=== PATIENT | male | born 1995 | race Caucasian/White ===

== ENCOUNTER → 2018-08-15 15:28 | Outpatient (CLI) | payer MEDICAID, SELFPAY ==
[2018-08-11 16:43] VITALS: BMI 21.4
[2018-08-15 17:22] LABS: Absolute Lymphocyte Count 1.78 X10^3/ul (0.83-4.51); Absolute Neutrophil Count 3.6 X10^3/uL (2.0-7.7); Basophil# 0.04 X10^3/uL; Basophil% 0.7 % (0-1); Eosinophil# 0.02 X10^3/uL; Eosinophils% 0.3 % (0-5); Hematocrit 40.3 % (40-54); Hemoglobin 14.1 g/dl (13.0-16.5); Lymphocyte # 1.78 X10^3/ul (4.0); Lymphocyte % 30.2 % (19-41); Mean Corpuscular Hgb 29.7 pg (27.0-32.0); Mean Corpuscular Volume 84.8 fL (80-94); Mean Platelet Vol. 10.7 fl (6.2-12.0); Monocyte# 0.43 X10^3/uL; Monocyte% 7.3 % (0-10); Neutrophil # 3.62 X10^3/uL (2.7-7.7); Neutrophil % 61.3 % (47-70); Platelet Count 180 K/mm3 (150-450); RBC Distribution Width CV 12.5 % (11.6-14.6); RBC Distribution Width SD 38.4 fl (35.1-43.9); Red Blood Count 4.75 M/mm3 (4.6-6.2); White Blood Count 5.9 K/mm3 (4.4-11.0)
[2018-08-15 17:30] LABS: POSITIVE COUNT NO; POSITIVE DIFFERENTIAL NO; POSITIVE MORPHOLOGY NO
[2018-08-15 17:40] LABS: ALB/GLOB Ratio 1.8 RATIO (0.9-2.4); AST(SGOT) 10 U/L (15-37); Alanine Aminotransfer ALT/SGPT 19 U/L (16-61); Albumin, Serum 4.6 g/dL (3.2-5.0); Alkaline Phosphatase 59 U/L (45-117); Anion Gap 11 (5-15); BUN 15 mg/dL (7-18); BUN/Creat Ratio 18.8 RATIO (10-20); Calcium,Total 9.1 mg/dL (8.5-10.1); Chloride 105 mmol/L (98-107); EST Glomerular Filtration Rate 131 mL/min (>60); Est Glom Filt Rate - Afr Amer 158 mL/min (>60); Globulin 2.6 g/dL (2.2-4.2); Glucose 72 mg/dL (74-106); Potassium 3.5 mmol/L (3.5-5.1); Protein, Total 7.2 g/dL (6.4-8.2); Sodium Level 144 mmol/L (136-145)
== END ==
PROVIDERS: Family Provider Internal Medicine; PCP Internal Medicine; Referring Provider Internal Medicine; Visit Provider Internal Medicine
DX: G91.9 Hydrocephalus, unspecified (principal)
CPT/HCPCS: 36415; 80053; 85025

== ENCOUNTER → 2019-01-24 | Outpatient (CLI) | payer MEDICAID, SELFPAY ==
[2019-01-23 14:04] VITALS: BMI 21.4
[2019-01-25 13:08] LABS: Amphetamine Urine VISTA POSITIVE (<1000 ng/mL); Barbiturate Urine VISTA NEGATIVE (< 200 ng/mL); Benzodiazepine Urine VISTA NEGATIVE (< 200 ng/mL); Cocaine Urine VISTA NEGATIVE (< 300 ng/mL); Ecstacy Urine VISTA NEGATIVE (< 500 ng/mL); Methadone Urine VISTA NEGATIVE (< 300 ng/mL); PCP Urine VISTA NEGATIVE (< 25 ng/mL); THC Urine VISTA POSITIVE (< 50 ng/mL); Vista UDS pH Range 6
== END | disposition home or self-care (01) ==
PROVIDERS: Family Provider Internal Medicine; PCP Internal Medicine; Visit Provider Internal Medicine
DX: F90.9 Attention-deficit hyperactivity disorder, unspecified type (principal)
CPT/HCPCS: 80307

== ENCOUNTER 2019-06-08 11:07 | Emergency (ER) | payer MEDICAID, SELFPAY ==
[2019-05-31 15:01] VITALS: BMI 21.4
[2019-06-08 11:08] VITALS: BP 126/92; PULSE 80; RESP 16; TEMP 36.9; O2SAT 99; BMI 25.8
--- NOTE | 2019-06-08 12:04 | RAD_ITS ---
STUDY: X-RAY CHEST REASON FOR EXAM: Male, 23 years old. Chest pain and tightness TECHNIQUE: PA and lateral views of the chest. COMPARISON: 2009 FINDINGS: LARD BLEACHER shunt tube free of obvious complication The lungs are clear and expanded. There is no demonstrated pleural abnormality. Normal size heart. Normal mediastinum and vicki. Normal visualized pulmonary arteries. Normal visualized aortic arch and descending thoracic aorta. Normal visualized thoracic spine. Normal visualized ribs, clavicles, and shoulders. There is no demonstrated abnormality of the visualized soft tissue structures of the upper abdomen. RAD/Chest PA and Lateral IMPRESSION: Normal x-ray examination of the chest. Electronically Signed: Mehul Castro MD at 12:20 EDT , Service support ,
[2019-06-08 12:19] LABS: Absolute Lymphocyte Count 1.73 X10^3/uL (0.83-4.51); Absolute Neutrophil Count 4.4 X10^3/uL (2.0-7.7); Basophil# 0.08 X10^3/uL; Basophil% 1.2 % (0-1); Eosinophil# 0.01 X10^3/uL; Eosinophils% 0.1 % (0-5); Hematocrit 42.1 % (40-54); Hemoglobin 14.6 g/dL (13.0-16.5); Lymphocyte # 1.73 X10^3/ul (4.0); Lymphocyte % 25.6 % (19-41); Mean Corp Hgb Conc 34.7 g/dL (32-36); Mean Corpuscular Hgb 29.6 pg (27.0-32.0); Mean Corpuscular Volume 85.4 fL (80-94); Mean Platelet Vol. 10.4 fl (6.2-12.0); Monocyte# 0.54 X10^3/uL; NRBC Flagged by Analyzer 0 % (0-5); Neutrophil # 4.38 X10^3/uL (2.7-7.7); Neutrophil % 64.7 % (47-70); Platelet Count 205 K/mm3 (150-450); RBC Distribution Width CV 11.9 % (11.6-14.6); RBC Distribution Width SD 36.5 fl (35.1-43.9); Red Blood Count 4.93 M/mm3 (4.6-6.2); White Blood Count 6.8 K/mm3 (4.4-11.0)
[2019-06-08 13:03] LABS: Anion Gap 6 (5-15); BUN 12 mg/dL (7-18); BUN/Creat Ratio 12.9 RATIO (10-20); Calcium,Total 9.1 mg/dL (8.5-10.1); Chloride 104 mmol/L (98-107); Creatinine, Serum 0.93 mg/dL (0.70-1.30); EST Glomerular Filtration Rate 108 mL/min (>60); Est Glom Filt Rate - Afr Amer 131 mL/min (>60); Estimated Creatinine Clearance 113.38 ml/min; Glucose 82 mg/dL (74-106); Potassium 3.4 mmol/L (3.5-5.1); Sodium Level 141 mmol/L (136-145)
--- NOTE | 2019-06-08 13:29 | ED.DCSUM_ITS ---
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 Patient states he started developing chest pain in the center of his chest this week. Patient states it is intermittent and sharp. He gets an episode approximately every hour. The pain will last for couple seconds at a time. Is not affected by breathing or position. He denies any new activities. Pain does not radiate. States he never had any like this before. Has not tried taking anything for the pain at home. He denies any associated nausea, vomiting, abdominal pain, fever, chills, cough or shortness of breath. Patient denies any history of hypertension, hyperlipidemia or diabetes. He denies any other c omplaints at this time. Past Medical History - Allergies and Home Meds Allergies/Adverse Reactions: Allergies No Known Allergies Allergy (Verified 06/08/19 11:08) Primary Care Physician: Pablito Arteaga MD [Primary Care Provider] - Past Medical History: - - Hydrocephalus, depression/anxiety Surgical History: - - PRODUCTION RECOVERY OPERATOR shunt Lives: With Family Smoking Status: Never smoker Review of Systems All systems negative except as indicated Cardiovascular: Reports: Chest pain Physical Exam Vital Signs/Narrative: Vital Signs Temp Pulse Resp BP Pulse Ox 06/08/19 11:08 98.4 F 80 16 126/92 H 99 Inital Vital Signs reviewed: Yes General: Well nourished, Well developed, No Acute Distress Head: Normocephalic, Atraumatic Eyes: Perrl, EOMI ENT: Moist mucous membranes, No rhinorrhea Neck: Supple, Nontender Cardiovascular: Regular rate, Regular rhythm, No murmurs Respiratory: No distress, CTA bilaterally, Chest tenderness - Mild tenderness to palpation over the xiphoid process of lower sternum Abdomen: Soft, Nontender, Nondistended, Normal bowel sounds Back: Nontender, Normal Inspection Extremities: Nontender, No edema Skin: Normal color, No rash Neurological: Alert, Oriented x3, Cranial nerves II-XII grossly intact, Normal Strength, Normal Sensation Psychological: Normal affect, Normal Mood Diagnostic/Tx/Re-eval Chest X-Ray - ED: 2 View, Read by Radiologist, No Acute Disease Clinical Impression(s) from Imaging Studies Chest X-Ray 06/08/19 12:04 IMPRESSION: Normal x-ray examination of the chest. Electronically Signed: Mehul Castro MD at 12:20 EDT , Service support , Laboratory Data 06/08/19 06/08/19 12:00 12:00 WBC 6.8 RBC 4.93 Hgb 14.6 Hct 42.1 MCV 85.4 MCH 29.6 MCHC 34.7 RDW Std Deviation 36.5 RDW Coeff of [place] 11.9 Plt Count 205 MPV 10.4 Immature Gran % (Auto) 0.400 Neut % (Auto) 64.7 Lymph % (Auto) 25.6 [place] % (Auto) 8.0 Eos % (Auto) 0.1 Baso % (Auto) 1.2 H Absolute Neuts (auto) 4.4 Absolute Lymphs (auto) 1.73 Nucleated RBC % 0 Sodium 141 Potassium 3.4 L Chloride 104 Carbon Dioxide 31.0 Anion Gap 6 BUN 12 Creatinine 0.93 Estim Creat Clear Calc 113.38 Est GFR (MDRD) Af Amer 131 Est GFR (MDRD) Non-Af 108 BUN/Creatinine Ratio 12.9 Glucose 82 Calcium 9.1 Troponin negative - Rhythm Strip Rhythm Strip: Sinus Rhythm Rate: 73 Ectopy: None - EKG Initial EKG Interpretation: Sinus Rhythm, - - Normal sinus rhythm at a rate of 73 Normal intervals Normal axis Normal ST segments - Medical Decision Making Patient evaluated for ongoing intermittent chest pain. He is low risk for ACS. EKG is normal. Do not suspect pericarditis or endocarditis. Chest x-ray does not show any acute process. Troponin, CBC and BMP are grossly normal. Patient given Tylenol and ibuprofen with improvement of his pain. Patient is safe for discharge and outpatient follow-up. Do not suspect ACS or other emergent cause of his pain today. Patient will be discharged home with a course of Motrin for his pain. Patient is counseled on signs and symptoms requiring return to the emergency room. Patient verbalizes agreement and understand this plan. Patient discharged home in stable and improved condition. ED Disposition - Plan for ED Patient: Disposition: Home or Assisted Living Diagnosis: Chest pain of unknown etiology Instructions: CHEST PAIN, Uncertain Cause Prescriptions: Ibuprofen [Motrin] 600 mg PO Q8H PRN PRN #20 tab PRN Reason: Pain Or Fever Prescription Printed Referrals: Pablito Arteaga MD [Primary Care Provider] - Additional Instructions: Follow-up with your primary care doctor for further evaluation if your chest pain does not resolve. Return to emergency room with worsening symptoms as needed.
[2019-06-08] MEDS: Ibuprofen 600 MG Tablet PO (14:09)
[2019-06-08] MEDS: Acetaminophen 325 MG Tablet 650 MG PO (14:09)
--- NOTE | 2019-06-08 14:27 | EKG12_ITS ---
Test Reason : CP Blood Pressure : / mmHG Vent. Rate : 073 BPM Atrial Rate : 073 BPM P-R Int : 126 ms QRS Dur : 122 ms QT Int : 382 ms P-R-T Axes : 067 054 043 degrees QTc Int : 420 ms Normal sinus rhythm with sinus arrhythmia Non-specific intra-ventricular conduction delay Borderline ECG Confirmed by RICHARD MOREL MD ([id number]), general expeditor KIMBER MANUEL ([id number]) on 06/12/2019 10:49:44 AM Referred By: FRIDA
[2019-06-08 15:19] VITALS: BP 133/76; PULSE 76; RESP 16; O2SAT 99
== END 2019-06-08 15:22 | disposition home or self-care (01) ==
PROVIDERS: Emergency Provider Emergency Medicine; Family Provider Internal Medicine; PCP Internal Medicine
DX: R07.9 Chest pain, unspecified (principal); F32.9 Major depressive disorder, single episode, unspecified; F41.9 Anxiety disorder, unspecified; G91.9 Hydrocephalus, unspecified; Z98.2 Presence of cerebrospinal fluid drainage device; Z79.899 Other long term (current) drug therapy
CPT/HCPCS: 71046; 80048; 84484; 85025; 93005; 99283

== ENCOUNTER → 2021-05-23 11:48 | Outpatient (CLI) | payer MEDICAID, SELFPAY ==
[2021-05-23 15:38] LABS: Absolute Lymphocyte Count 1.48 X10^3/uL (0.83-4.51); Absolute Neutrophil Count 2.8 X10^3/uL (2.0-7.7); Basophil# 0.07 X10^3/uL; Basophil% 1.4 % (0-1); Eosinophil# 0.04 X10^3/uL; Eosinophils% 0.8 % (0-5); Hemoglobin 14.7 g/dL (13.0-16.5); Lymphocyte # 1.48 X10^3/ul (0.83-4.51); Lymphocyte % 30.5 % (19-41); Mean Corp Hgb Conc 34.2 g/dL (32-36); Mean Corpuscular Hgb 30.3 pg (27.0-32.0); Mean Corpuscular Volume 88.7 fL (80-94); Mean Platelet Vol. 11.5 fl (6.2-12.0); Monocyte# 0.43 X10^3/uL; Monocyte% 8.9 % (0-10); NRBC Flagged by Analyzer 0 % (0-5); Neutrophil # 2.81 X10^3/uL (2.7-7.7); Platelet Count 207 K/mm3 (150-450); RBC Distribution Width CV 11.9 % (11.6-14.6); RBC Distribution Width SD 38.2 fl (35.1-43.9); Red Blood Count 4.85 M/mm3 (4.6-6.2); White Blood Count 4.9 K/mm3 (4.4-11.0)
[2021-05-23 15:59] LABS: ALB/GLOB Ratio 1.3 RATIO (0.9-2.4); AST(SGOT) 10 U/L (15-37); Alanine Aminotransfer ALT/SGPT 19 U/L (16-61); Albumin, Serum 4.2 g/dL (3.2-5.0); Alkaline Phosphatase 53 U/L (45-117); Anion Gap 4 (5-15); BUN 13 mg/dL (7-18); BUN/Creat Ratio 14.7 RATIO (10-20); Calcium,Total 9.6 mg/dL (8.5-10.1); Chloride 107 mmol/L (98-107); Creatinine, Serum 0.88 mg/dL (0.70-1.30); EST Glomerular Filtration Rate 113 mL/min (>60); Est Glom Filt Rate - Afr Amer 137 mL/min (>60); Globulin 3.2 g/dL (2.2-4.2); Glucose 81 mg/dL (74-106); Protein, Total 7.4 g/dL (6.4-8.2); Sodium Level 140 mmol/L (136-145); T4 Free Direct 0.98 ng/dL (0.76-1.46); Thyroid Stim Hormone (TSH) 0.97 uIU/mL (0.358-3.74)
== END ==
PROVIDERS: PCP Internal Medicine; Referring Provider Internal Medicine; Visit Provider Internal Medicine
DX: F41.9 Anxiety disorder, unspecified (principal); F32.A Depression, unspecified
CPT/HCPCS: 36415; 80053; 84439; 84443; 85025

== ENCOUNTER 2021-06-16 09:43 | Emergency (ER) | payer MEDICAID, SELFPAY ==
[2021-06-16 09:44] VITALS: BP 145/89; PULSE 78; RESP 18; TEMP 36.2; O2SAT 100; BMI 25.1
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
[2021-06-16] MEDS: 0.9% Normal Saline 1,000 ML 1000 ML IV (10:32)
[2021-06-16] MEDS: DiphenhydrAMINE 50 MG/ML Syringe 25 MG IV (10:32)
[2021-06-16] MEDS: Ketorolac 30 MG/ML Syringe IV (10:33)
[2021-06-16] MEDS: proCHLORPERazine 10 MG/2 ML Vial IV (10:34)
== END 2021-06-16 11:13 | disposition home or self-care (01) ==
PROVIDERS: Emergency Provider Emergency Medicine; PCP Internal Medicine
DX: G43.909 Migraine, unspecified, not intractable, without status migrainosus (principal); S00.81XA Abrasion of other part of head, initial encounter; Y04.0XXA Assault by unarmed brawl or fight, initial encounter; Y93.9 Activity, unspecified; Y92.59 Other trade areas as the place of occurrence of the external cause; F32.A Depression, unspecified; F41.9 Anxiety disorder, unspecified; F90.9 Attention-deficit hyperactivity disorder, unspecified type; M41.9 Scoliosis, unspecified; G91.9 Hydrocephalus, unspecified; Z98.2 Presence of cerebrospinal fluid drainage device; Z79.899 Other long term (current) drug therapy; F17.210 Nicotine dependence, cigarettes, uncomplicated
CPT/HCPCS: 96361; 96374; 96375; 99283; J7030

== ENCOUNTER 2021-09-02 07:49 | Emergency (ER) | payer MEDICAID, SELFPAY ==
[2021-09-02 07:50] VITALS: BP 150/74; PULSE 73; RESP 16; TEMP 35.7; O2SAT 99; BMI 25.8
--- NOTE | 2021-09-02 08:20 | EX.ED.VIS.HA ---
HPI History of Present Illness Chief Complaint: Headache Informant: patient Onset/Context/Timing Onset: Today Context: Gradual Current Severity: Moderate Maximum Severity: Moderate Narrative Narrative: Patient presents secondary to frontal migraine headache. Patient states that headache started shortly after he got to work. He has not taken anything for the headache. He does get migraines frequently. 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 This was last checked [address] scan and TRAFFIC SURVEY TECHNICIAN shunt series. I was able to review these test results in [facility]. [facility] PFS Medical History ADHD Anxiety and depression Chronic headaches Environmental allergies Hydrocephalus with operating shunt Irritability Scoliosis Home Medications ibuprofen 600 mg PO Q8H PRN PRN #20 tab 06/08/19 [Rx Last Taken Unknown] fluoxetine 20 mg tablet 20 mg PO BID #60 tab 05/23/21 [Rx Last Taken Unknown] Allergy/AdvReac Type Severity Reaction Status Date / Time No Known Allergies Allergy Verified 09/02/21 07:52 Family History Mother Diabetes Social History Smoking Status: Current every day smoker tobacco type: cigarettes Electronic Cigarette Use: with nicotine alcohol intake: never substance use type: does not use what type of physical activity do you participate in: none and running frequency: daily ROS ROS ED Constitutional Constitutional ED: Denies chills or fever(s) Eyes Eyes: Denies blurry vision or change in vision ENT ENT ED: Denies sore throat Cardiovascular Cardiovascular: Denies chest pain Respiratory/Chest Respiratory/Chest: Denies cough or dyspnea Gastrointestinal Gastrointestinal: Denies abdominal pain, diarrhea, nausea or vomiting Genitourinary Genitourinary ED: Denies dysuria Musculoskeletal Musculoskeletal: Denies back pain or neck pain Integumentary Denies rash Neurologic Neurologic: Reports headache(s) and other Details: Light sensitivity. ; Denies paresthesias or weakness Allergic/Immunologic Allergic/Immunologic ED: Denies urticaria EXAM Physical Exam Const Vital Signs: 09/02/21 07:50 Temperature 96.2 F L Temperature Source Temporal Pulse Rate 73 Respiratory Rate 16 Blood Pressure 150/74 H Blood Pressure Mean 99 Pulse Ox 99 Oxygen Delivery Method Room Air Positive well nourished and well developed General Appearance ED: well developed HEENT Reports normocephalic and head/scalp atraumatic Eyes PERRL and EOMs intact bilaterally Neck supple and no meningeal signs Chest Wall inspection of chest normal and palpation of chest normal Resp normal respiratory effort and clear to auscultation bilaterally Cardio regular rate and regular rhythm GI normal to inspection, nondistended, normoactive bowel sounds Palpation: soft Extremity normal to inspection Neuro oriented x3 and no sensory deficits noted Sensorium / Orientation: alert Motor Exam: strength 5/5 throughout Psych mental status grossly normal Skin no rashes or lesions noted Lesions: no lesions Rashes: no rashes MDM MDM MDM Narrative Medical decision making narrative: I did review the patient's shunt series and CT scan from 5 weeks ago. Shunt was unremarkable at that time. Patient was given Toradol, Reglan, Benadryl, IV fluids. Treatment and Re-Evaluation Comments:: On repeat evaluation patient's headache is significantly improved. He will be discharged home to continue supportive care. Discharge Plan Triage Chief Complaint: Headache ED Provider: Tamara Hancock Dx/Rx/DC Orders Clinical Impression: Migraine Instructions: ED, Migraine (Classical) Prescriptions: No Action fluoxetine 20 mg tablet 20 mg PO BID Qty: 60 RF: 1 ibuprofen 600 MG tablet 600 mg PO Q8H PRN PRN (Reason: Pain Or Fever) Qty: 20 RF: 0 Primary Care Provider: Pablito Arteaga Referrals: Pablito Arteaga MD [Primary Care Provider] - As Needed Disposition Disposition: Home, Self Care
[2021-09-02] MEDS: 0.9% Normal Saline 1,000 ML 999 ML IV (08:39)
[2021-09-02] MEDS: DiphenhydrAMINE 50 MG/ML Syringe 25 MG IV (08:41)
[2021-09-02] MEDS: Ketorolac 30 MG/ML Syringe IV (08:41)
[2021-09-02] MEDS: Metoclopramide 10 MG/2 ML Vial IV (08:44)
[2021-09-02 10:46] VITALS: BP 148/72; PULSE 70; RESP 18; O2SAT 99
== END 2021-09-02 11:03 | disposition home or self-care (01) ==
PROVIDERS: Emergency Provider Emergency Medicine; PCP Internal Medicine; Visit Provider Emergency Medicine
DX: G43.909 Migraine, unspecified, not intractable, without status migrainosus (principal); F17.210 Nicotine dependence, cigarettes, uncomplicated; Z98.2 Presence of cerebrospinal fluid drainage device
CPT/HCPCS: 96361; 96374; 96375; 99283; J7030; A4216

== ENCOUNTER 2021-12-23 08:59 | Emergency (ER) | payer MEDICAID, SELFPAY ==
[2021-12-23 09:00] VITALS: BP 154/88; PULSE 69; RESP 16; TEMP 36.6; O2SAT 99; BMI 26.9
--- NOTE | 2021-12-23 09:33 | EDS_ITS ---
HPI History of Present Illness Chief Complaint: Abd Pain Informant: patient and parent Narrative Narrative: 3-day history of waxing and waning right upper quadrant abdominal pain worse with movement. Denies trauma or any new activities. No vomiting diarrhea no worsening symptoms with meals. Normal bowel movements. No urinary symptoms. History of ADHD low hydrocephalus with a TRESTLE BUILDER shunt. Mother concerned due to the patient having shunts causing problems. He is followed by Dr. Garcia. Denies headache. No chest pains. Prior similar symptoms: No PFSH PFSH Medical History ADHD Anxiety and depression Chronic headaches Environmental allergies Head ache Hydrocephalus with operating shunt Irritability Scoliosis Seizures Home Medications ibuprofen 600 mg PO Q8H PRN PRN #20 tab 06/08/19 [Rx Last Taken Unknown] sumatriptan succinate 50 mg tablet 50 mg PO .COMPLEX #9 tab 12/04/21 [Rx Last Taken Unknown] topiramate 50 mg tablet See Rx Instructions .ROUTE .COMPLEX #60 tab 12/04/21 [Rx Last Taken Unknown] Allergy/AdvReac Type Severity Reaction Status Date / Time No Known Allergies Allergy Verified 12/23/21 09:00 Family History Mother Diabetes Hypertension Surgical History History of tonsillectomy Social History Smoking Status: Current every day smoker tobacco type: cigarettes Electronic Cigarette Use: with nicotine alcohol intake: never substance use type: does not use what type of physical activity do you participate in: none and running frequency: daily ROS ROS ED Constitutional Constitutional ED: Denies chills, fever(s) or sweats Eyes Eyes: Denies change in vision ENT ENT ED: Denies dysphagia or sore throat Cardiovascular Cardiovascular: Denies chest pain, leg edema, palpitations or racing heartbeat Respiratory/Chest Respiratory/Chest: Denies cough, dyspnea or dyspnea on exertion Gastrointestinal Gastrointestinal: Reports abdominal pain; Denies diarrhea, nausea or vomiting Genitourinary Genitourinary ED: Denies dysuria, hematuria or urinary frequency Musculoskeletal Musculoskeletal: Denies back pain, extremity pain or neck pain Integumentary Denies rash or wounds Neurologic Neurologic: Denies headache(s), paresthesias or weakness EXAM Physical Exam Const Vital Signs: 12/23/21 09:00 12/23/21 11:36 Temperature 97.8 F Temperature Source Temporal Pulse Rate 69 79 Respiratory Rate 16 14 Blood Pressure 154/88 H 146/88 H Blood Pressure Mean 110 Pulse Ox 99 98 Oxygen Delivery Method Room Air Positive well nourished and well developed General Appearance ED: well developed and NAD HEENT Reports moist mucous membranes normocephalic and atraumatic Eyes PERRL, EOMs intact bilaterally and conjunctivae normal General Eye ED: Yes normal appearance of both eyes Neck no lymphadenopathy and supple General: Negative for tenderness Chest Wall Chest: Negative for tenderness Resp normal respiratory effort and normal air movement Effort and Inspection: symmetric chest movement; Negative for respiratory distress Cardio regular rate, regular rhythm and no murmurs Peripheral Pulses: pulses 2+ throughout GI normal to inspection, nondistended, normoactive bowel sounds GI Narrative: Tender deep palpation right upper quadrant there is no guarding or rebound. Negative Spivey's or McBurney's tenderness. No hernias palpated. Palpation: Negative for guarding or rebound tenderness present Back/Spine no CVA tenderness and no thoracic nor lumbar tenderness Extremity normal to inspection General Extremety ED: Negative for edema or tenderness General Extremity: Negative for edema Neuro oriented x3 and no sensory deficits noted Sensorium / Orientation: awake and alert Skin no rashes or lesions noted and no wounds MDM MDM MDM Narrative Medical decision making narrative: Patient nonsurgical abdomen. Other concerns from the shunt therefore shuntogram was obtained this is reviewed by myself and read by radiology notes intact shunts. Abdominal labs are all normal. He was given Tylenol. On reevaluation symptom-free. Abdomen was soft and nontender on reevaluation. Discussed using Tylenol as needed. He is having normal bowel movements with no urinary symptoms. mother is more reassured. Return precautions discussed. All questions were answered. Lab Data Labs: Laboratory Results - last 24 hr 12/23/21 12/23/21 09:44 09:44 WBC 6.6 RBC 4.98 Hgb 15.1 Hct 43.0 MCV 86.3 MCH 30.3 MCHC 35.1 RDW Std Deviation 38.0 RDW Coeff of [place] 11.9 Plt Count 154 MPV 11.1 Sodium 139 Potassium 3.8 Chloride 104 Carbon Dioxide 28.0 Anion Gap 7 BUN 11 Creatinine 1.03 Estim Creat Clear Calc 106.99 Est GFR (MDRD) Af Amer 114 Est GFR (MDRD) Non-Af 94 BUN/Creatinine Ratio 10.7 Glucose 94 Calcium 9.2 Total Bilirubin 0.50 AST 9 L ALT 20 Alkaline Phosphatase 59 Total Protein 7.5 Albumin 4.3 Globulin 3.2 Albumin/Globulin Ratio 1.3 Lipase 97 Radiography Diagnostic Testing: Clinical Impression(s) from Imaging Studies Shuntogram 12/23/21 10:00 IMPRESSION: Intact right-sided ventriculoperitoneal shunt tube. Electronically Signed: Frank Rico MD at 10:20 EDT , Discharge Plan Triage Chief Complaint: Abd Pain ED Provider: Zaki Mann Dx/Rx/DC Orders Clinical Impression: Nonspecific abdominal pain, ADHD, Hydrocephalus with operating shunt Instructions: Abdominal Pain Prescriptions: No Action sumatriptan succinate 50 mg tablet 50 mg PO .COMPLEX Qty: 9 RF: 4 topiramate 50 mg tablet See Rx Instructions .ROUTE .COMPLEX Qty: 60 RF: 4 ibuprofen 600 MG tablet 600 mg PO Q8H PRN PRN (Reason: Pain Or Fever) Qty: 20 RF: 0 Primary Care Provider: Pablito Arteaga Referrals: Pablito Arteaga MD [Primary Care Provider] - 1 Week Activity Restrictions/Additional Instructions: Your shunt series is intact. Abdominal labs were normal you improved with Tylenol. Use Tylenol 1 g every 6 hours as needed. Return if any worsening symptoms. Disposition Disposition: Home, Self Care Discharge Date/Time: 12/23/21 11:39
[2021-12-23] MEDS: Acetaminophen 500 MG Tablet 1000 MG PO (09:51)
--- NOTE | 2021-12-23 10:00 | RAD_ITS ---
CLINICAL HISTORY: Male, 26 years old. Right sided ventriculoperitoneal shunt tube. TECHNIQUE: Images of the skull, chest and abdomen were obtained. A right-sided ventriculoperitoneal shunt tube is seen. The tubing is intact. The distal tip is in the pelvis. # of Images: 4 RAD/Shuntogram/Prec Placed Shunt IMPRESSION: Intact right-sided ventriculoperitoneal shunt tube. Electronically Signed: Frank Rico MD at 10:20 EDT ,
[2021-12-23 10:14] LABS: Hemoglobin 15.1 g/dL (13.0-16.5); Mean Corp Hgb Conc 35.1 g/dL (32-36); Mean Corpuscular Hgb 30.3 pg (27.0-32.0); Mean Corpuscular Volume 86.3 fL (80-94); Mean Platelet Vol. 11.1 fl (6.2-12.0); Platelet Count 154 K/mm3 (150-450); RBC Distribution Width CV 11.9 % (11.6-14.6); Red Blood Count 4.98 M/mm3 (4.6-6.2); White Blood Count 6.6 K/mm3 (4.4-11.0)
[2021-12-23 10:25] LABS: ALB/GLOB Ratio 1.3 RATIO (0.9-2.4); AST(SGOT) 9 U/L (15-37); Alanine Aminotransfer ALT/SGPT 20 U/L (16-61); Albumin, Serum 4.3 g/dL (3.2-5.0); Alkaline Phosphatase 59 U/L (45-117); Anion Gap 7 (5-15); BUN 11 mg/dL (7-18); BUN/Creat Ratio 10.7 RATIO (10-20); Calcium,Total 9.2 mg/dL (8.5-10.1); Chloride 104 mmol/L (98-107); Creatinine, Serum 1.03 mg/dL (0.70-1.30); EST Glomerular Filtration Rate 94 mL/min (>60); Est Glom Filt Rate - Afr Amer 114 mL/min (>60); Estimated Creatinine Clearance 106.99 ml/min; Globulin 3.2 g/dL (2.2-4.2); Glucose 94 mg/dL (74-106); Lipase 97 U/L (73-393); Potassium 3.8 mmol/L (3.5-5.1); Protein, Total 7.5 g/dL (6.4-8.2); Sodium Level 139 mmol/L (136-145)
[2021-12-23 11:36] VITALS: BP 146/88; PULSE 79; RESP 14; O2SAT 98
== END 2021-12-23 11:39 | disposition home or self-care (01) ==
PROVIDERS: Emergency Provider Emergency Medicine; PCP Internal Medicine; Visit Provider Emergency Medicine
DX: R10.11 Right upper quadrant pain (principal); G91.9 Hydrocephalus, unspecified; G40.909 Epilepsy, unspecified, not intractable, without status epilepticus; F17.210 Nicotine dependence, cigarettes, uncomplicated; F90.9 Attention-deficit hyperactivity disorder, unspecified type; Z98.2 Presence of cerebrospinal fluid drainage device; F41.9 Anxiety disorder, unspecified; F32.A Depression, unspecified; M41.9 Scoliosis, unspecified; Z79.899 Other long term (current) drug therapy
CPT/HCPCS: 75809; 80053; 83690; 85027; 99283

== ENCOUNTER 2022-02-02 10:35 | Emergency (ER) | payer MEDICAID, SELFPAY ==
[2022-02-02 10:36] VITALS: BP 149/90; PULSE 67; RESP 14; TEMP 36.4; O2SAT 99; BMI 25.0
--- NOTE | 2022-02-02 11:39 | EDS_ITS ---
HPI History of Present Illness Chief Complaint: Headache Narrative Narrative: 26-year-old male here with headache. History of [employer] shunt, migraine, chronic headaches. The patient states he has had 12 hours of frontal headache. States is similar to prior headaches. States is gradual in onset, not associated with syncope, seizures. Denies any numbness, weakness, loss of sensation, slurred speech, facial drooping. Patient denies any recent falls. Denies any dizziness. Old chart reviewed: Last ED visit in August 2021 for migraine Noted shuntogram for 1 month ago shows intact right-sided [employer] shunt tube no obvious kinks, tube is intact [facility] Medical History ADHD Anxiety and depression Chronic headaches Environmental allergies Head ache Hydrocephalus with operating shunt Irritability Scoliosis Seizures Home Medications ibuprofen 600 mg tablet 600 mg PO Q8H PRN PRN Pain Or Fever #20 tabs 06/08/19 [Rx Last Taken Unknown] sumatriptan succinate 50 mg tablet 50 mg PO .COMPLEX #9 tabs 12/04/21 [Rx Last Taken Unknown] topiramate 50 mg tablet See Rx Instructions .Route .COMPLEX #60 tabs 12/04/21 [Rx Last Taken Unknown] metoclopramide HCl 5 mg tablet (Reglan) 5 mg PO Q8H PRN PRN headache #21 tabs 02/02/22 [Rx Last Taken Unknown] Allergy/AdvReac Type Severity Reaction Status Date / Time No Known Allergies Allergy Verified 02/02/22 10:37 Family History Mother Diabetes Hypertension Surgical History History of tonsillectomy Social History Smoking Status: Current every day smoker tobacco type: cigarettes Electronic Cigarette Use: with nicotine alcohol intake: never substance use type: does not use what type of physical activity do you participate in: none and running frequency: daily ROS ROS ED Eyes Eyes: Denies other visual disturbances ENT ENT ED: Denies ear pain Cardiovascular Cardiovascular: Denies chest pain Respiratory/Chest Respiratory/Chest: Denies dyspnea Gastrointestinal Gastrointestinal: Denies abdominal pain Genitourinary Genitourinary ED: Denies dysuria Musculoskeletal Musculoskeletal: Denies joint pain Integumentary Denies rash Neurologic Neurologic: Reports headache(s) and other Details: Notes sensitivity to light and sound ; Denies dizziness, focal weakness, numbness, syncope or weakness Psychiatric Psychiatric: Denies homicidal ideation or suicidal ideation EXAM Physical Exam Const Vital Signs: 02/02/22 10:36 Temperature 97.5 F L Temperature Source Temporal Pulse Rate 67 Respiratory Rate 14 Blood Pressure 149/90 H Blood Pressure Mean 109 Pulse Ox 99 Oxygen Delivery Method Room Air Neuro oriented x3, CN's II-XII intact bilaterally and no sensory deficits noted Neuro Narrative: Patient was alert and oriented to person place and time. Neuro exam at baseline. Cranial nerves II through XII intact. No pain with extraocular muscle movement. Negative test of skew. Normal speech. 5 of 5 strength in upper and lower extremities. Intact sensation to light touch in upper and lower extremities. No truncal, extremity ataxia. 2+ reflexes (brachial, patella, Achilles). No meningeal signs. Negative Babinski. NIH of 0 Sensorium / Orientation: alert Motor Exam: strength 5/5 throughout MDM MDM MDM Narrative Medical decision making narrative: 26-year-old male here with headache. Patient was hemodynamically stable, afebrile, nontoxic-appearing. Exam without focal neurologic deficits low suspicion for acute intracranial normalities such as [employer] shunt malfunction, hydrocephalus, subarachnoid hemorrhage, ICH. Gave the patient headache cocktail. After medicines including Reglan, Tylenol, Toradol, Decadron patient noted complete resolution of symptoms. Repeat Chava neurologic exam was intact and no new focal deficits. I have a low suspicion for an acute intracranial process at this time patient is appropriate for discharge home Discharge Plan Triage Chief Complaint: Headache ED Provider: Song Doss Dx/Rx/DC Orders Clinical Impression: Headache Instructions: ED Headache Unspecified Prescriptions: New metoclopramide HCl [Reglan] 5 mg tablet 5 mg PO Q8H PRN PRN (Reason: headache) Qty: 21 0RF No Action sumatriptan succinate 50 mg tablet 50 mg PO .COMPLEX Qty: 9 4RF Rx Instructions: 50 mg PO every two hours as needed for headache up to two tablets per day topiramate 50 mg tablet See Rx Instructions .ROUTE .COMPLEX Qty: 60 4RF Rx Instructions: 1/2 tablet PO twice daily for 1 week then 1 tablet twice daily thereafter ibuprofen 600 MG tablet 600 mg PO Q8H PRN PRN (Reason: Pain Or Fever) Qty: 20 0RF Primary Care Provider: Pablito Arteaga Referrals: Pablito Arteaga MD [Primary Care Provider] - Disposition Disposition: Home, Self Care
[2022-02-02] MEDS: 0.9% Normal Saline 1,000 ML 999 ML IV (12:30)
[2022-02-02] MEDS: Metoclopramide 10 MG/2 ML Vial 5 MG IV (12:30)
[2022-02-02] MEDS: Ketorolac 15 MG/ML Vial IV (12:31)
[2022-02-02] MEDS: dexAMETHasone 4 MG/ML Vial IV (12:31)
[2022-02-02] MEDS: Acetaminophen 325 MG Tablet PO (12:33)
[2022-02-02 13:47] VITALS: BP 144/80; PULSE 67; RESP 14; O2SAT 100
== END 2022-02-02 13:48 | disposition home or self-care (01) ==
PROVIDERS: Emergency Provider Emergency Medicine; PCP Internal Medicine; Visit Provider Emergency Medicine
DX: R51.9 Headache, unspecified (principal); F17.210 Nicotine dependence, cigarettes, uncomplicated; Z98.2 Presence of cerebrospinal fluid drainage device
CPT/HCPCS: 96374; 96375; 99283; A4216

== ENCOUNTER → 2022-08-20 | Outpatient (CLI) | payer MEDICAID, SELFPAY ==
--- NOTE | 2022-08-20 12:50 | RAD_ITS ---
EXAM: XR THORACIC SPINE, 4 OR MORE VIEWS CLINICAL INDICATION: midline back pain TECHNIQUE: Frontal, lateral and oblique views of the thoracic spine. This report was created using [employer] report generation technology. COMPARISON: None. FINDINGS: VERTEBRAE: Unremarkable. Preserved vertebral body height. No fracture. No spondylolisthesis. Preservation of the normal thoracic kyphosis. No significant facet arthropathy. DISC SPACES: Unremarkable. Disc spaces are maintained. RAD/Thoracic Spine 3 Views IMPRESSION: No evidence of thoracic spinal fracture or spondylolisthesis. Electronically Signed: Clarence Saul MD at 17:42 EST ,
== END | disposition home or self-care (01) ==
LOC: RAD 12:47
PROVIDERS: PCP Internal Medicine; Referring Provider Physician Assistant; Visit Provider Physician Assistant
DX: M54.6 Pain in thoracic spine (principal)
CPT/HCPCS: 72072

== ENCOUNTER 2022-10-26 09:35 | Emergency (ER) | payer MEDICAID, SELFPAY ==
[2022-10-26 09:37] VITALS: BP 149/100; PULSE 78; RESP 16; TEMP 36.6; O2SAT 100; BMI 26.7
--- NOTE | 2022-10-26 10:29 | EDS_ITS ---
HPI HPI - GI History of Present Illness Chief Complaint: Abd Pain Informant: patient Abdominal Pain/Flank Pain Onset: Weeks (1) Context: Gradual Onset Timing: Intermittent and Lasts (Several hours) Quality: Aching Location: Diffuse Worsened by: Movement Relieved by: Remaining Still Nausea/Vomiting/Emesis GI Symptom: Negative for Nausea or Vomiting Diarrhea/Melena/Hematochezia GI Symptom: Positive for Diarrhea Onset: Yesterday Stool Quality: Positive for Watery Episodes: 1 Associated Symptoms Associated Symptoms: Negative for Dysuria, Frequency or Hematuria Narrative Narrative: Patient presents with abdominal pain that has been constant for the past week. Patient states it comes and goes and last for several hours. Patient states it is diffuse across his abdomen. Patient states it is worse with certain movements. Patient states it is better whenever he is able to remain still. Patient denies any nausea or vomiting. Patient denies any anorexia or decrease in his appetite. Patient does admit to some diarrhea. Patient states it was only 1 episode. Patient states it was watery. Patient denies any dysuria, frequency, or hematuria. Patient denies any fevers or chills. Patient states he does have pain that radiates into his shoulders. [facility] Medical History ADHD Anxiety and depression Chronic headaches Environmental allergies Head ache Hydrocephalus with operating shunt Irritability Scoliosis Seizures Home Medications ibuprofen 600 mg tablet 600 mg PO Q8H PRN PRN Pain Or Fever #20 tabs 06/08/19 [Rx Last Taken Unknown] sumatriptan succinate 50 mg tablet 50 mg PO .COMPLEX #9 tabs 12/04/21 [Rx Last Taken Unknown] Allergy/AdvReac Type Severity Reaction Status Date / Time No Known Allergies Allergy Verified 10/26/22 09:39 Family History Mother Diabetes Hypertension Surgical History History of tonsillectomy Social History Smoking Status: Current every day smoker tobacco type: cigarettes Electronic Cigarette Use: with nicotine alcohol intake: never substance use type: does not use what type of physical activity do you participate in: none and running frequency: daily ROS ROS ED Constitutional Constitutional ED: Denies chills or fever(s) Eyes Eyes: Denies blurry vision or change in vision ENT ENT ED: Denies rhinorrhea or sore throat Cardiovascular Cardiovascular: Denies chest pain or palpitations Respiratory/Chest Respiratory/Chest: Denies cough or dyspnea Gastrointestinal Gastrointestinal: Reports abdominal pain and diarrhea; Denies nausea or vomiting Genitourinary Genitourinary ED: Denies dysuria or hematuria Musculoskeletal Musculoskeletal: Reports back pain; Denies neck pain Integumentary Denies abscess or rash Neurologic Neurologic: Denies headache(s) or weakness Allergic/Immunologic Allergic/Immunologic ED: Denies mouth swelling or urticaria EXAM Physical Exam Const Vital Signs: 10/26/22 09:37 Temperature 97.9 F Temperature Source Temporal Pulse Rate 78 Respiratory Rate 16 Blood Pressure 149/100 H Blood Pressure Mean 116 Pulse Ox 100 Oxygen Delivery Method Room Air Positive well nourished and well developed General Appearance ED: well developed HEENT Reports moist mucous membranes Neck supple and no JVD Resp normal respiratory effort and clear to auscultation bilaterally Cardio regular rate, regular rhythm and no murmurs GI normal to inspection, nondistended, normoactive bowel sounds Palpation: soft and tender RLQ; Negative for guarding or rebound tenderness present Extremity normal to inspection General Extremety ED: Negative for edema or tenderness General Extremity: Negative for edema Neuro oriented x3, CN's II-XII intact bilaterally and no sensory deficits noted Sensorium / Orientation: alert Motor Exam: strength 5/5 throughout Psych mental status grossly normal Skin no rashes or lesions noted MDM MDM MDM Narrative Medical decision making narrative: Differential diagnosis includes appendicitis, gastroenteritis, ureteral calculus, pyelonephritis, urinary tract infection, pancreatitis, bowel obstruction, bowel perforation, and mesenteric adenitis. CBC will be obtained to assess for leukocytosis and anemia. Comprehensive metabolic profile will be obtained to assess for electrolyte abnormality, renal function, and hepatic function. Lipase will be obtained to assess for pancreatitis. Urinalysis will be obtained to assess for urinary tract infection and hematuria. CT scan of the abdomen pelvis will be obtained to assess for appendicitis, enteritis, bowel perforation, and bowel obstruction. Lab Data Attestation: I reviewed the patient's lab results. Lab results narrative: CBC was reviewed and was within normal limits. Comprehensive metabolic profile was reviewed and was within normal limits. Lipase was reviewed and was normal. Urinalysis was reviewed. There is no evidence of urinary tract infection or hematuria. Labs: Laboratory Results - last 24 hr 10/26/22 10/26/22 10/26/22 10:00 10:04 10:04 WBC 7.0 RBC 5.22 Hgb 15.7 Hct 45.2 MCV 86.6 MCH 30.1 MCHC 34.7 RDW Std Deviation 38.3 RDW Coeff of [place] 12.0 Plt Count 215 MPV 10.9 Immature Gran % (Auto) 0.300 Neut % (Auto) 67.4 Lymph % (Auto) 23.2 White % (Auto) 7.8 Eos % (Auto) 0.3 Baso % (Auto) 1.0 Absolute Neuts (auto) 4.7 Absolute Lymphs (auto) 1.63 Nucleated RBC % 0 Sodium 141 Potassium 3.9 Chloride 106 Carbon Dioxide 27.0 Anion Gap 8 BUN 16 Creatinine 0.95 Estim Creat Clear Calc 108.20 Est GFR (MDRD) Af Amer 124 Est GFR (MDRD) Non-Af 103 BUN/Creatinine Ratio 16.8 Glucose 99 Calcium 9.6 Total Bilirubin 0.50 AST 11 L ALT 20 Alkaline Phosphatase 53 Total Protein 7.3 Albumin 4.4 Globulin 2.9 Albumin/Globulin Ratio 1.5 Lipase 132 Urine Color Yellow Urine Clarity Clear Urine pH 8.0 Ur Specific [place] 1.015 Urine Protein Negative Urine Glucose (UA) Normal Urine Ketones Negative Urine Occult Blood Negative Urine Nitrite Negative Urine Bilirubin Negative Urine Urobilinogen Normal Ur Leukocyte Esterase Negative Urine RBC 0 SEEN Urine WBC 0 SEEN Ur Squamous Epith Cells 0 SEEN Urine Bacteria 0 SEEN Urine Mucus 0 SEEN Radiography Diagnostic Testing: Clinical Impression(s) from Imaging Studies Abdomen/Pelvis CT 10/26/22 10:34 IMPRESSION: No suspicious solid organ abnormality No free intraperitoneal fluid, air, or suspicious adenopathy, normal appendix visualized RN FAMILY shunt tube noted with no sonographic evidence of complication Electronically Signed: Mehul Castro MD at 12:41 EDT , CT scan of the abdomen pelvis was obtained. There is no free fluid or free air. The appendix is visualized and was normal. There is a RN FAMILY shunt tube is noted in the lower abdomen. There is no evidence of any complication. This was interpreted by the radiologist and was also independently reviewed by myself. Treatment and Re-Evaluation :: Patient was given IV fluids, morphine, and Zofran initially. Patient is feeling better on reevaluation. Patient was advised of his findings. Patient was instructed to follow-up with his primary care physician in 5 to 7 days. Patient was instructed to start with liquids and advance his diet as tolerated. Patient was instructed return if worse in any way. Patient understood and was agreeable with the plan. All questions were answered. Discharge Plan Triage Chief Complaint: Abd Pain ED Provider: Marlon Alcantara Dx/Rx/DC Orders Clinical Impression: Abdominal pain in male, Hydrocephalus with operating shunt Instructions: ED Abdominal Pain Unkn Cause Male... Prescriptions: No Action sumatriptan succinate 50 mg tablet 50 mg PO .COMPLEX Qty: 9 4RF Rx Instructions: 50 mg PO every two hours as needed for headache up to two tablets per day ibuprofen 600 MG tablet 600 mg PO Q8H PRN PRN (Reason: Pain Or Fever) Qty: 20 0RF Primary Care Provider: Pablito Arteaga Referrals: Pablito Arteaga MD [Primary Care Provider] - 5-7 Days Disposition Disposition: Home, Self Care
--- NOTE | 2022-10-26 10:34 | CT_ITS ---
STUDY: CT ABDOMEN AND PELVIS WITH CONTRAST REASON FOR EXAM: Male, 26 years old. Abdominal pain -- IV PO Contrast RADIATION DOSAGE (If Supplied By Facility): CTDIvol = ( 11.19 ) mGy, DLP = ( 454.81 ) mGycm TECHNIQUE: Transaxial images were obtained from the dome of the diaphragm to the symphysis pubis with oral contrast. Oral and amp;amp; IV Gastrografin and amp;amp; 100mL Isovue-300 was administered. Sagittal and coronal images were reconstructed. Individualized dose optimization techniques were used for this CT. COMPARISON: None. FINDINGS: AP shunt tube noted, no suspicious fluid collection near the tip of the shunt within the pelvis. The visualized lung bases are unremarkable. The visualized portions of the heart are within normal limits. Normal liver. Normal gallbladder and extrahepatic biliary system. Normal spleen. Normal pancreas. Normal bilateral adrenal glands. Normal right kidney. Normal left kidney. Normal visualized stomach. Normal small intestine. Normal colon. The appendix is visualized and appears normal. Appendix seen on coronal recon images 44-47 Normal abdominal aorta. Normal inferior vena cava. Normal retroperitoneum. Normal urinary bladder. Normal abdominal wall. Normal osseous structures. CT/Abdomen/Pelvis WITH Contrast IMPRESSION: No suspicious solid organ abnormality No free intraperitoneal fluid, air, or suspicious adenopathy, normal appendix visualized [employer] shunt tube noted with no sonographic evidence of complication Electronically Signed: Mehul Castro MD at 12:41 EDT ,
[2022-10-26] MEDS: 0.9% Normal Saline 1,000 ML 1000 ML IV (10:44)
[2022-10-26] MEDS: Ondansetron 4 MG/2 ML Vial IV (10:45)
[2022-10-26] MEDS: Morphine 4 MG/ML Syringe IV (10:45)
[2022-10-26 10:46] LABS: Bacteria 0 SEEN /hpf (None Seen); Mucous, Urine 0 SEEN /hpf (<or=2+); Red Blood Cells-Urine 0 SEEN /hpf (0-5); Squamous Epithelial Cells - UA 0 SEEN /hpf (0-5); White Blood Cells 0 SEEN /hpf (0-5)
[2022-10-26 10:47] LABS: Absolute Lymphocyte Count 1.63 X10^3/uL (0.83-4.51); Absolute Neutrophil Count 4.7 X10^3/uL (2.0-7.7); Basophil# 0.07 X10^3/uL; Eosinophil# 0.02 X10^3/uL; Eosinophils% 0.3 % (0-5); Hematocrit 45.2 % (40-54); Hemoglobin 15.7 g/dL (13.0-16.5); Lymphocyte # 1.63 X10^3/ul (0.83-4.51); Lymphocyte % 23.2 % (19-41); Mean Corp Hgb Conc 34.7 g/dL (32-36); Mean Corpuscular Hgb 30.1 pg (27.0-32.0); Mean Corpuscular Volume 86.6 fL (80-94); Mean Platelet Vol. 10.9 fl (6.2-12.0); Monocyte# 0.55 X10^3/uL; Monocyte% 7.8 % (0-10); NRBC Flagged by Analyzer 0 % (0-5); Neutrophil # 4.74 X10^3/uL (2.7-7.7); Neutrophil % 67.4 % (47-70); Platelet Count 215 K/mm3 (150-450); RBC Distribution Width SD 38.3 fl (35.1-43.9); Red Blood Count 5.22 M/mm3 (4.6-6.2)
[2022-10-26 10:47] LABS: Color, Urine Yellow (Yellow); Glucose, Dipstick Normal (Normal); Ketone-Dipstick Negative (Negative); Leukocyte Esterase-Dipstick Negative /ul (Negative); Nitrite-Dipstick Negative (Negative); Occult Blood-Urine Negative /ul (Negative); Protein-Dipstick Negative (Negative); Specific Gravity, Urine 1.015 (1.002-1.030); Urine Bilirubin Dipstick Negative (Negative); Urine Clarity Clear (Clear); Urine Urobilinogen Normal (Normal)
[2022-10-26 11:05] LABS: ALB/GLOB Ratio 1.5 RATIO (0.9-2.4); AST(SGOT) 11 U/L (15-37); Alanine Aminotransfer ALT/SGPT 20 U/L (16-61); Albumin, Serum 4.4 g/dL (3.2-5.0); Alkaline Phosphatase 53 U/L (45-117); Anion Gap 8 (5-15); BUN 16 mg/dL (7-18); BUN/Creat Ratio 16.8 RATIO (10-20); Calcium,Total 9.6 mg/dL (8.5-10.1); Chloride 106 mmol/L (98-107); Creatinine, Serum 0.95 mg/dL (0.70-1.30); EST Glomerular Filtration Rate 103 mL/min (>60); Est Glom Filt Rate - Afr Amer 124 mL/min (>60); Globulin 2.9 g/dL (2.2-4.2); Glucose 99 mg/dL (74-106); Lipase 132 U/L (73-393); Potassium 3.9 mmol/L (3.5-5.1); Protein, Total 7.3 g/dL (6.4-8.2); Sodium Level 141 mmol/L (136-145)
[2022-10-26 13:55] VITALS: BP 147/88; PULSE 74; RESP 16; O2SAT 99
== END 2022-10-26 13:57 | disposition home or self-care (01) ==
PROVIDERS: Emergency Provider Emergency Medicine; PCP Internal Medicine; Visit Provider Emergency Medicine
DX: R10.9 Unspecified abdominal pain (principal); G91.9 Hydrocephalus, unspecified; R19.7 Diarrhea, unspecified; R11.2 Nausea with vomiting, unspecified; F17.210 Nicotine dependence, cigarettes, uncomplicated; Z98.2 Presence of cerebrospinal fluid drainage device
CPT/HCPCS: 74177; 80053; 81001; 83690; 85025; 96361; 96374; 96375; 99284; J7030; Q9967; A4216; J2405

== ENCOUNTER 2023-04-21 15:26 | Emergency (ER) | payer MEDICAID, SELFPAY ==
[2023-04-21 15:27] VITALS: BP 126/86; PULSE 97; RESP 16; TEMP 37; O2SAT 96; BMI 26.2
--- NOTE | 2023-04-21 16:19 | EX.ED.DYSGE1 ---
HPI History of Present Illness Chief Complaint: Seizure Informant: patient Onset/Context/Timing Onset: Today Context: Sudden Onset Timing: Intermittent and Lasts (Approximately 10 minutes) Quality: Shaking Location: Generalized Worsened by: Nothing Relieved by: Nothing Narrative Narrative: Patient presents with a seizure that occurred today. Patient states it came on rather suddenly. Significant other witnessed the seizure and states he was having generalized shaking. Patient then passed out and fell to the floor. Significant other states that this lasted approximately 10 minutes. She stated that he turned purple. She states that this improved when the seizure stopped. Patient states he did bite his tongue. Patient denies any loss of control of his bowels or bladder. Patient states he did have an episode of nausea and vomiting prior to the seizure. Patient does admit to a mild headache. [facility] Medical History (Updated 04/21/23 @ 19:[address] Marlon Alcantara DO) ADHD Anxiety and depression Chronic headaches Environmental allergies Head ache Hydrocephalus with operating shunt Irritability Scoliosis Seizures Home Medications ibuprofen 600 mg tablet 600 mg PO Q8H PRN PRN Pain Or Fever #20 tabs 06/08/19 [Rx Last Taken Unknown] sumatriptan succinate 50 mg tablet 50 mg PO .COMPLEX #9 tabs 12/04/21 [Rx Last Taken Unknown] Allergy/AdvReac Type Severity Reaction Status Date / Time No Known Allergies Allergy Verified 10/26/22 09:39 Family History Mother Diabetes Hypertension Surgical History (Updated 04/21/23 @ 16:[address] Marlon Alcantara DO) History of tonsillectomy Status post ventriculo-peritoneal shunt placement Social History Smoking Status: Current every day smoker tobacco type: cigarettes Electronic Cigarette Use: with nicotine alcohol intake: never substance use type: does not use what type of physical activity do you participate in: none and running frequency: daily ROS ROS ED Constitutional Constitutional ED: Denies chills or fever(s) Eyes Eyes: Denies blurry vision or change in vision ENT ENT ED: Denies rhinorrhea or sore throat Cardiovascular Cardiovascular: Denies chest pain or palpitations Respiratory/Chest Respiratory/Chest: Denies cough or dyspnea Gastrointestinal Gastrointestinal: Reports nausea and vomiting Genitourinary Genitourinary ED: Denies dysuria or hematuria Musculoskeletal Musculoskeletal: Denies back pain or neck pain Integumentary Reports Abrasions; Denies abscess or rash Neurologic Neurologic: Reports headache(s); Denies weakness Allergic/Immunologic Allergic/Immunologic ED: Denies mouth swelling or urticaria EXAM Physical Exam Const Vital Signs: 04/21/23 15:27 04/21/23 16:54 Temperature 98.6 F Temperature Source Oral Pulse Rate 97 75 Respiratory Rate 16 16 Blood Pressure 126/86 H 127/73 H Blood Pressure Mean 99 91 Pulse Ox 96 100 Oxygen Delivery Method Room Air Room Air Positive well nourished and well developed General Appearance ED: well developed HEENT Reports moist mucous membranes Neck supple and no JVD Resp normal respiratory effort and clear to auscultation bilaterally Cardio regular rate, regular rhythm and no murmurs GI normal to inspection, nondistended, normoactive bowel sounds and non-tender Palpation: soft Extremity normal to inspection General Extremety ED: Negative for edema or tenderness General Extremity: Negative for edema Neuro oriented x3, CN's II-XII intact bilaterally and no sensory deficits noted Sensorium / Orientation: alert Motor Exam: strength 5/5 throughout Psych mental status grossly normal Skin no rashes or lesions noted Skin Narrative: There is an abrasion over the right forehead and dorsal aspect of the left hand. There is no active bleeding. There is no surrounding erythema. There is no bony tenderness or crepitance or step-off. MDM MDM MDM Narrative Medical decision making narrative: Differential diagnosis includes seizure, hydrocephalus, electrolyte abnormality, infection, and dehydration. CT scan of the brain will be obtained to assess for hydrocephalus and intracranial bleeding. CBC will be obtained to assess for leukocytosis and anemia. Basic metabolic profile will be obtained to assess for electrolyte abnormality and renal function. Lab Data Labs: Laboratory Results - last 24 hr 04/21/23 16:36 WBC 14.3 H RBC 4.78 Hgb 14.6 Hct 41.6 MCV 87.0 MCH 30.5 MCHC 35.1 RDW Std Deviation 37.7 RDW Coeff of [place] 11.7 Plt Count 199 MPV 11.2 Immature Gran % (Auto) 0.700 Neut % (Auto) 85.0 H Lymph % (Auto) 8.3 L [place] % (Auto) 5.1 Eos % (Auto) 0.3 Baso % (Auto) 0.6 Absolute Neuts (auto) 12.1 H Absolute Lymphs (auto) 1.18 Nucleated RBC % 0 Sodium 142 Potassium 4.0 Chloride 108 H Carbon Dioxide 29.0 Anion Gap 5 BUN 10 Creatinine 1.05 Estim Creat Clear Calc 104.05 Est GFR (MDRD) Af Amer 110 Est GFR (MDRD) Non-Af 91 BUN/Creatinine Ratio 9.5 L Glucose 85 Calcium 8.9 Radiography Diagnostic Testing: Clinical Impression(s) from Imaging Studies Brain CT 04/21/23 16:26 IMPRESSION: Findings which may be consistent with normal pressure hydrocephalus possibly due to ventriculoperitoneal shunt malfunction. Clinical correlation recommended Electronically Signed: Jong Laureano MD at 17:04 EDT , CT scan of the brain was obtained. There is findings which may be consistent with normal pressure hydrocephalus. This appears to be similar in appearance to CT scan from 11/07/2009. This was interpreted by the radiologist and also independently reviewed by myself. Treatment and Re-Evaluation :: On reevaluation, patient is feeling better. Patient has had no further seizure activity here in the emergency department. Patient denies any headaches. I palpated the patient's shunt valve. This appeared to be functioning properly. I also reviewed prior CT report from [facility] dated 07/16/[facility]21. There was report of stable ventriculomegaly on that report as well. I feel that the patient is safe to be discharged home. Patient was instructed return if any worsening headaches or further seizures. Patient was instructed to return if worse in any way. Patient was instructed to follow-up with his neurologist or neurosurgeon in 5 to 7 days. Patient was also instructed to follow-up with his primary care physician in 5 to 7 days. Patient and family understood and were agreeable with the plan. All questions were answered. Discharge Plan Triage Chief Complaint: Seizure ED Provider: Marlon Alcantara Dx/Rx/DC Orders Clinical Impression: Hydrocephalus with operating shunt, Seizure Instructions: ED Seizure, Recurrent (Adult) Prescriptions: No Action sumatriptan succinate 50 mg tablet 50 mg PO .COMPLEX Qty: 9 4RF Rx Instructions: 50 mg PO every two hours as needed for headache up to two tablets per day ibuprofen 600 MG tablet 600 mg PO Q8H PRN PRN (Reason: Pain Or Fever) Qty: 20 0RF Primary Care Provider: Pablito Arteaga Referrals: Pablito Arteaga MD [Primary Care Provider] - 5-7 Days David Garcia MD [Non-Staff -Ordering Privileges] - 5-7 Days Disposition Disposition: Home, Self Care
--- NOTE | 2023-04-21 16:26 | CT_ITS ---
STUDY: CT BRAIN WITHOUT CONTRAST REASON FOR EXAM: Male, 27 years old. Seizure RADIATION DOSAGE (If Supplied By Facility): CTDIvol = ( 44.99 ) mGy, DLP = ( 829.85 ) mGycm TECHNIQUE: Transaxial CT imaging of the brain was performed without administration of intravenous contrast material. Individualized dose optimization techniques were used for this CT. COMPARISON: No relevant priors. FINDINGS: Normal soft tissue structures. [place] hole noted in the right parietal lobe through which a ventricular shunt is projecting with the tip in the left lateral ventricle. There is marked diffuse ventriculomegaly possibly on the basis of communicating hydrocephalus raising question of shunt malfunction Normal white matter tracts of the cerebral hemispheres. Normal basal ganglia and thalami. Normal brainstem. Normal cerebellum. There is no intracranial hemorrhage. There are no findings of an acute ischemic infarction. Normal visualized paranasal sinuses. CT/Brain/Head without Contrast IMPRESSION: Findings which may be consistent with normal pressure hydrocephalus possibly due to ventriculoperitoneal shunt malfunction. Clinical correlation recommended Electronically Signed: Jong Laureano MD at 17:04 EDT ,
[2023-04-21] MEDS: 0.9% Normal Saline 1,000 ML 1000 ML IV (16:32)
[2023-04-21 16:41] LABS: Absolute Lymphocyte Count 1.18 X10^3/uL (0.83-4.51); Absolute Neutrophil Count 12.1 X10^3/uL (2.0-7.7); Basophil# 0.08 X10^3/uL; Basophil% 0.6 % (0-1); Eosinophil# 0.04 X10^3/uL; Eosinophils% 0.3 % (0-5); Hematocrit 41.6 % (40-54); Hemoglobin 14.6 g/dL (13.0-16.5); Lymphocyte # 1.18 X10^3/ul (0.83-4.51); Lymphocyte % 8.3 % (19-41); Mean Corp Hgb Conc 35.1 g/dL (32-36); Mean Corpuscular Hgb 30.5 pg (27.0-32.0); Mean Platelet Vol. 11.2 fl (6.2-12.0); Monocyte# 0.73 X10^3/uL; Monocyte% 5.1 % (0-10); NRBC Flagged by Analyzer 0 % (0-5); Neutrophil # 12.14 X10^3/uL (2.7-7.7); Platelet Count 199 K/mm3 (150-450); RBC Distribution Width CV 11.7 % (11.6-14.6); RBC Distribution Width SD 37.7 fl (35.1-43.9); Red Blood Count 4.78 M/mm3 (4.6-6.2); White Blood Count 14.3 K/mm3 (4.4-11.0)
[2023-04-21 16:54] VITALS: BP 127/73; PULSE 75; RESP 16; O2SAT 100
[2023-04-21 16:57] LABS: Anion Gap 5 (5-15); BUN 10 mg/dL (7-18); BUN/Creat Ratio 9.5 RATIO (10-20); Calcium,Total 8.9 mg/dL (8.5-10.1); Chloride 108 mmol/L (98-107); Creatinine, Serum 1.05 mg/dL (0.70-1.30); EST Glomerular Filtration Rate 91 mL/min (>60); Est Glom Filt Rate - Afr Amer 110 mL/min (>60); Estimated Creatinine Clearance 104.05 ml/min; Glucose 85 mg/dL (74-106); Sodium Level 142 mmol/L (136-145)
[2023-04-21] MEDS: Ondansetron 4 MG/2 ML Vial IV (17:19)
[2023-04-21 19:27] VITALS: BP 103/74; PULSE 81; RESP 16; O2SAT 98
== END 2023-04-21 19:43 | disposition home or self-care (01) ==
PROVIDERS: Emergency Provider Emergency Medicine; PCP Internal Medicine; Visit Provider Emergency Medicine
DX: R56.9 Unspecified convulsions (principal); G91.9 Hydrocephalus, unspecified; F17.210 Nicotine dependence, cigarettes, uncomplicated; R51.9 Headache, unspecified; Z98.2 Presence of cerebrospinal fluid drainage device; F17.290 Nicotine dependence, other tobacco product, uncomplicated
CPT/HCPCS: 70450; 80048; 85025; 96361; 96374; 99285; J7030; A4216; J2405

== ENCOUNTER 2023-05-06 09:52 | Emergency (ER) | payer MEDICAID, SELFPAY ==
[2023-05-06 09:53] VITALS: BP 140/84; PULSE 65; RESP 16; TEMP 36.1; O2SAT 100; BMI 25.3
--- NOTE | 2023-05-06 10:02 | EDS_ITS ---
HPI History of Present Illness Chief Complaint: Complaint [facility] Medical History ADHD Anxiety and depression Chronic headaches Environmental allergies Head ache Hydrocephalus with operating shunt Irritability Scoliosis Seizures Home Medications divalproex 500 mg tablet,delayed release 500 mg PO .COMPLEX #60 tabs 05/05/23 [Rx Last Taken Unknown] rizatriptan 10 mg tablet 10 mg PO .COMPLEX migraine headache #9 tabs 05/05/23 [Rx Last Taken Unknown] Allergy/AdvReac Type Severity Reaction Status Date / Time No Known Allergies Allergy Verified 05/06/23 09:53 Family History Mother Diabetes Hypertension Surgical History History of tonsillectomy Status post ventriculo-peritoneal shunt placement Social History Smoking Status: Current every day smoker tobacco type: cigarettes Electronic Cigarette Use: with nicotine alcohol intake: never substance use type: does not use what type of physical activity do you participate in: none and running frequency: daily EXAM Physical Exam Const Vital Signs: 05/06/23 09:53 Temperature 97.0 F L Temperature Source Temporal Pulse Rate 65 Respiratory Rate 16 Blood Pressure 140/84 H Blood Pressure Mean 102 Pulse Ox 100 Oxygen Delivery Method Room Air MDM MDM MDM Narrative Medical decision making narrative: HISTORY OF PRESENT ILLNESS: 27-year-old male here with difficulty urinating, notes pain with urination. This started yesterday. He is sexually active 1 partner. Denies concern for STDs. Notes lower abdominal pain yesterday since resolved after taking Motrin. Denies history abdominal surgeries. Denies nausea or vomiting. Denies any chest pain. REVIEW OF SYSTEMS: Pertinent positives: Difficulty urinating, abdominal pain Pertinent negatives: Nausea vomiting PHYSICAL EXAM: Nursing triage notes reviewed, Vital signs reviewed Constitutional: please see mdm HENT: MMM Eyes: Pupils equal round and reactive to light, Extraocular muscles intact Neck: No stridor, no JVD, full neck ROM Lungs: Clear to auscultation, No wheezing or rales. No increased work of breathing, no conversational dyspnea, no accessory muscle use, no nasal flaring. No respiratory distress noted Heart: Regular rate and rhythm, No murmurs, No rubs and No gallops, 2+ distal pulses (radial, femoral, posterior tibial) in all extremities Abdomen: Soft, there is no tenderness, rigidity, rebound or guarding, no obvious peritoneal signs, no palpable pulsatile abdominal masses, no auscultated abdominal bruit : No CVAT, normal-appearing genitalia, no testicular tenderness on exam Extremities: No edema Neuro: No focal neurological deficits, cranial nerves II through XII intact, 5/5 strength in all extremities. Intact sensation to light touch in all extremities, 2+ reflexes bilateral patella tendons. Normal gait. No ataxia. 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 Urinalysis shows no evidence of urinary inflammation suggestive of UTI MDM Narrative: Patient was hemodynamically stable, afebrile, nontoxic-appearing abdominal exam is benign. There is no apparent tenderness. No suprapubic tenderness or fullness. I considered the following differential diagnosis: UTI, STD Given benign nature abdominal exam I considered but thought an acute surgical pathology of the abdomen is less likely. No indication for imaging at this time. Given report of urinary tension did obtain a bladder scan as well as obtained a urinalysis. Bladder scan was not consistent wit urinary retention urinalysis without evidence of inflammation or infection. Sent urine for gonorrhea chlamydia testing given sexual activity, young age and high risk demographic. Patient has a low suspicion for STDs so will not empirically treat. The patient and/or family, caregivers express understanding. The patient and/or family, caregivers agrees with the plan. Shared decision making: I will have a discussion with the patient and or visitors regarding risk/benefits of further testing or admission. They will be made aware of of the risk/benefits inherent in this decision they will be given the opportunity to voice understanding. Total critical care time today provided was at least 0 minutes. This excludes separately billable procedures. Critical care time (if documented) is secondary to the patient having high probability of clinically significant/life threatening deterioration in the patient's condition which required my urgent intervention. Impression: 1. dysuria Dispo: esther Lab Data Attestation: I reviewed the patient's lab results. Labs: Laboratory Results - last 24 hr 05/06/23 10:35 Urine Color Yellow Urine Clarity Clear Urine pH 7.0 Ur Specific [place] 1.010 Urine Protein Negative Urine Glucose (UA) Normal Urine Ketones Negative Urine Occult Blood Negative Urine Nitrite Negative Urine Bilirubin Negative Urine Urobilinogen Normal Ur Leukocyte Esterase Negative Urine RBC 0 SEEN Urine WBC 0 SEEN Ur Squamous Epith Cells 0 SEEN Urine Bacteria 0 SEEN Urine Mucus 0 SEEN Discharge Plan Triage Chief Complaint: Complaint ED Provider: Song Doss Dx/Rx/DC Orders Instructions: Dysuria Prescriptions: No Action divalproex 500 mg tablet,delayed release (DR/EC) 500 mg PO .COMPLEX Qty: 60 5RF Rx Instructions: Take 1 tablet orally daily for 3 days then 1 tablet twice daily thereafter rizatriptan 10 mg tablet 10 mg PO .COMPLEX Qty: 9 4RF Rx Instructions: Take 1 tablet orally every two hours as needed for headache up to three tablets per day Primary Care Provider: Pablito Arteaga Referrals: Pablito Arteaga MD [Primary Care Provider] - Activity Restrictions/Additional Instructions: Thank you for trusting us with your care today! Please take Tylenol (2 pills, 650 mg), ibuprofen (2 pills, 400 mg) every 6 hours as needed for pain and fever control. Please return to the emergency department if your symptoms change or worsen. Specifically return if you not have the ability to urinate for 12 or more hours. Please follow with your primary care physician for further outpatient evaluation and management. Disposition Disposition: Home, Self Care
[2023-05-06 10:38] LABS: Bacteria 0 SEEN /hpf (None Seen); Mucous, Urine 0 SEEN /hpf (<or=2+); Red Blood Cells-Urine 0 SEEN /hpf (0-5); Squamous Epithelial Cells - UA 0 SEEN /hpf (0-5); White Blood Cells 0 SEEN /hpf (0-5)
[2023-05-06 10:40] LABS: Color, Urine Yellow (Yellow); Glucose, Dipstick Normal (Normal); Ketone-Dipstick Negative (Negative); Leukocyte Esterase-Dipstick Negative /ul (Negative); Nitrite-Dipstick Negative (Negative); Occult Blood-Urine Negative /ul (Negative); Protein-Dipstick Negative (Negative); Urine Bilirubin Dipstick Negative (Negative); Urine Clarity Clear (Clear); Urine Urobilinogen Normal (Normal)
[2023-05-06] MEDS: Ibuprofen 200 MG Tablet 400 MG PO (11:25)
[2023-05-06] MEDS: Acetaminophen 325 MG Tablet PO (11:26)
== END 2023-05-06 12:02 | disposition home or self-care (01) ==
PROVIDERS: Emergency Provider Emergency Medicine; PCP Internal Medicine; Visit Provider Emergency Medicine
DX: R30.0 Dysuria (principal); R56.9 Unspecified convulsions; F17.210 Nicotine dependence, cigarettes, uncomplicated; Z98.2 Presence of cerebrospinal fluid drainage device; Z79.899 Other long term (current) drug therapy; R51.9 Headache, unspecified
CPT/HCPCS: 81001; 87491; 87591; 99283

== ENCOUNTER → 2023-06-28 | Outpatient (CLI) | payer MEDICAID, SELFPAY ==
[2023-06-28 10:29] LABS: Hemoglobin 13.5 g/dL (13.0-16.5); Mean Corp Hgb Conc 33.8 g/dL (32-36); Mean Corpuscular Hgb 29.6 pg (27.0-32.0); Mean Corpuscular Volume 87.7 fL (80-94); Platelet Count 195 K/mm3 (150-450); RBC Distribution Width CV 12.3 % (11.6-14.6); RBC Distribution Width SD 39.4 fl (35.1-43.9); Red Blood Count 4.56 M/mm3 (4.6-6.2); White Blood Count 4.7 K/mm3 (4.4-11.0)
[2023-06-28 10:45] LABS: ALB/GLOB Ratio 1.8 RATIO (0.9-2.4); AST(SGOT) 9 U/L (15-37); Alanine Aminotransfer ALT/SGPT 17 U/L (16-61); Albumin, Serum 4.4 g/dL (3.2-5.0); Alkaline Phosphatase 45 U/L (45-117); Anion Gap 7 (5-15); BUN 18 mg/dL (7-18); BUN/Creat Ratio 20.8 RATIO (10-20); Calcium,Total 9.6 mg/dL (8.5-10.1); Chloride 107 mmol/L (98-107); Creatinine, Serum 0.87 mg/dL (0.70-1.30); EST Glomerular Filtration Rate 114 mL/min (>60); Est Glom Filt Rate - Afr Amer 137 mL/min (>60); Globulin 2.5 g/dL (2.2-4.2); Glucose 92 mg/dL (74-106); Magnesium 2.6 mg/dL (1.6-2.6); Potassium 3.7 mmol/L (3.5-5.1); Protein, Total 6.9 g/dL (6.4-8.2); Sodium Level 143 mmol/L (136-145)
[2023-06-28 11:49] LABS: Valproic Acid (Depakene) Level < 3 ug/mL (50-100)
== END | disposition home or self-care (01) ==
LOC: MTLAB 08:49
PROVIDERS: PCP Internal Medicine; Referring Provider Psychiatry & Neurology Neurology; Visit Provider Psychiatry & Neurology Neurology
DX: G40.909 Epilepsy, unspecified, not intractable, without status epilepticus (principal)
CPT/HCPCS: 36415; 80053; 80164; 82140; 83735; 85027

== ENCOUNTER 2024-01-02 13:34 | Emergency (ER) | payer MEDICAID, SELFPAY ==
[2024-01-02 13:35] VITALS: BP 138/106; PULSE 94; RESP 16; TEMP 37.1; O2SAT 97; BMI 21.9
[2024-01-02] MEDS: Ondansetron 4 MG/2 ML Vial IV (14:16)
--- NOTE | 2024-01-02 14:16 | CT_ITS ---
STUDY: CT BRAIN WITHOUT CONTRAST REASON FOR EXAM: Male, 28 years old. seizure, headache, intractable n/v TECHNIQUE: Transaxial CT imaging of the brain was performed without administration of intravenous contrast material. Individualized dose optimization techniques were used for this CT. COMPARISON: 04/21/2023 FINDINGS: Normal calvarium. Normal soft tissues. From a right posterior approach there is a ICING MACHINE OPERATOR shunt catheter. Tip resides in the left lateral ventricle. Dilation of the ventricles suggesting hydrocephalus. There is global dilation of the ventricles. Normal white matter tracts of the cerebral hemispheres. Normal basal ganglia and thalami. Normal brainstem. Normal cerebellum. There is no intracranial hemorrhage. There are no findings of an acute ischemic infarction. Normal visualized paranasal sinuses. ASPECTS 10 CT/Brain/Head without Contrast IMPRESSION: Stable severe hydrocephalus. ICING MACHINE OPERATOR shunt in place. Shunt malfunction should be considered as previously noted. Electronically Signed: Kwesi Chow MD at 14:59 EDT ,
--- NOTE | 2024-01-02 14:17 | EDS_ITS ---
HPI History of Present Illness Chief Complaint: Seizure Informant: patient and parent Narrative Narrative: Patient with a history of epilepsy, he had a breakthrough seizure today, he felt it coming on before hand and called his mom who was not at home with him. He does not know how long he had a seizure for. He was sitting on the side of his bed when this happened, he woke up lying on the same bed. Does not feel like he injured himself at all. No other prodromal symptoms or recent illness or injury. He is on seizure medication which he has been taking. Since the seizure, he had a headache which is common, but he has not been able to stop vomiting is uncommon. This happened within the last hour or 2. Patient states he was just discharged from [facility] after a 5-day stay because of breakthrough seizures, they did an EEG, looked at his shunt, started him on new medication and mom states that she just realized that it was supposed to be 2 pills/day for the first week and she is only been giving him 1 pill/day for the past 3 to 4 days since they have been home, which she feels really guilty about. This is the first seizure he has had since he has been out of the hospital. It was not witnessed by anyone and the patient is amnestic to the event. [facility] Medical History History of kidney stones Seizures Head ache Irritability Anxiety and depression Scoliosis Environmental allergies Hydrocephalus with operating shunt ADHD Chronic headaches Home Medications ?Medication ?Instructions ?Recorded ?Last Taken ?Type rizatriptan 10 mg tablet 10 mg PO .COMPLEX migraine 05/05/23 Unknown Rx headache #9 tabs fluoxetine 20 mg tablet See Rx Instructions .Route 12/29/23 Unknown Rx .COMPLEX #60 tabs oxcarbazepine 300 mg 600 mg PO DAILY 01/02/24 Unknown History tablet,extended release 24 hr (Oxtellar XR) Allergy/AdvReac Type Severity Reaction Status Date / Time No Known Allergies Allergy Verified 01/02/24 13:37 Family History Mother Diabetes Hypertension Surgical History History of tonsillectomy Status post ventriculo-peritoneal shunt placement Social History Smoking Status: Current every day smoker tobacco type: cigarettes Electronic Cigarette Use: with nicotine alcohol intake: never substance use type: does not use what type of physical activity do you participate in: none and running frequency: daily ROS ROS ED Constitutional Constitutional ED: Denies chills or fever(s) Eyes Eyes: Denies change in vision or diplopia ENT ENT ED: Denies rhinorrhea or sore throat Cardiovascular Cardiovascular: Denies chest pain or palpitations Respiratory/Chest Respiratory/Chest: Denies cough or dyspnea Gastrointestinal Gastrointestinal: Reports nausea and vomiting; Denies abdominal pain or diarrhea Genitourinary Genitourinary ED: Denies dysuria or hematuria Musculoskeletal Musculoskeletal: Denies back pain or neck pain Integumentary Denies abscess or rash Neurologic Neurologic: Reports as per HPI, headache(s) and seizures; Denies paresthesias or weakness Psychiatric Psychiatric: Denies anxiety or suicidal thoughts EXAM Physical Exam Const Vital Signs: 01/02/24 13:35 01/02/24 14:34 01/02/24 15:00 Temperature 98.8 F Temperature Source Temporal Pulse Rate 94 83 83 Respiratory Rate 16 18 16 Blood Pressure 138/106 H 133/108 H 122/84 H Blood Pressure Mean 116 116 96 Pulse Ox 97 96 98 Oxygen Delivery Method Room Air Room Air Room Air Positive well nourished and well developed General Appearance ED: well developed and NAD HEENT Reports moist mucous membranes HEENT Narrative: Shunt right posterior scalp without overlying erythema, no tenderness, no swelling. Track of the shunt all the way down the abdomen is benign and nontender without any overlying skin abnormalities or erythema. normocephalic and atraumatic Eyes PERRL and EOMs intact bilaterally Neck full ROM and supple Chest Wall inspection of chest normal and palpation of chest normal Resp normal respiratory effort and clear to auscultation bilaterally Cardio regular rate, regular rhythm and no murmurs GI non-tender and non-distended Auscultation: normoactive bowel sounds Palpation: soft Back/Spine no CVA tenderness General Back: other FROM Extremity normal to inspection General Extremety ED: Negative for edema, pulses abnormal or tenderness General Extremity: Negative for edema or pulses abnormal Neuro oriented x3, CN's II-XII intact bilaterally and no sensory deficits noted Neuro Narrative: Mentating normally. Sensorium / Orientation: awake and alert Motor Exam: strength 5/5 throughout Psych mental status grossly normal Skin no rashes or lesions noted and no wounds Skin Narrative: No signs of trauma anywhere. MDM MDM MDM Narrative Medical decision making narrative: Patient was given Zofran, IV fluids, and then after his nausea was better Tylenol. On reevaluation his headache is little better but not gone, his nausea is gone and he is tolerating oral fluids without difficulty. Brain CT was obtained, I reviewed the images and the result which I agree with, stable hydrocephalus with a HYGIENE TEACHER shunt in place. I do not think that there is necessarily a shunt malfunction given the history. Mother is going to administer the medication as prescribed at the proper dosing and they will follow-up. Stable for discharge will give him a dose of Toradol prior to letting him go. Radiography Diagnostic Testing: Clinical Impression(s) from Imaging Studies Brain CT 01/02/24 14:16 IMPRESSION: Stable severe hydrocephalus. HYGIENE TEACHER shunt in place. Shunt malfunction should be considered as previously noted. Electronically Signed: Kwesi Chow MD at 14:59 EDT Reading Location ID and State: [facility] / [place] , Service support , Discharge Plan Triage Chief Complaint: Seizure ED Provider: Ricardo Darnell Dx/Rx/DC Orders Clinical Impression: Breakthrough seizure, Epilepsy, Hydrocephalus with operating shunt, Vomiting Instructions: ED Seizure, Recurrent (Adult) Prescriptions: No Action rizatriptan 10 mg tablet 10 mg PO .COMPLEX Qty: 9 4RF Rx Instructions: Take 1 tablet orally every two hours as needed for headache up to three tablets per day Oxtellar XR 300 mg tablet extended release 24 hr 600 mg PO DAILY fluoxetine 20 mg tablet See Rx Instructions .ROUTE .COMPLEX Qty: 60 1RF Dose Instruction: 20 MG ORALLY TWICE A DAY ADMINISTER IN THE MORNING AND AT NOON/MIDDAY Rx Instructions: 20 MG ORALLY TWICE A DAY ADMINISTER IN THE MORNING AND AT NOON/MIDDAY Primary Care Provider: Pablito Arteaga Referrals: Pablito Arteaga MD [Primary Care Provider] - As Needed (or your neurology team as directed by them) Print Language: Macanese Disposition Disposition: Home, Self Care
[2024-01-02] MEDS: 0.9% Normal Saline (1000mL) 1,000 ML 999 ML IV (14:19)
[2024-01-02 14:34] VITALS: BP 133/108; PULSE 83; RESP 18; O2SAT 96
[2024-01-02] MEDS: Acetaminophen 500 MG Tablet 1000 MG PO (14:59)
[2024-01-02 15:00] VITALS: BP 122/84; PULSE 83; RESP 16; O2SAT 98
[2024-01-02 16:00] VITALS: BP 107/86; PULSE 88; RESP 16; TEMP 36.6; O2SAT 98
[2024-01-02] MEDS: Ketorolac 30 MG/ML Syringe IV (16:02)
== END 2024-01-02 16:05 | disposition home or self-care (01) ==
PROVIDERS: Emergency Provider Emergency Medicine; PCP Internal Medicine; Visit Provider Emergency Medicine
DX: G40.909 Epilepsy, unspecified, not intractable, without status epilepticus (principal); G91.9 Hydrocephalus, unspecified; Z98.2 Presence of cerebrospinal fluid drainage device; R11.2 Nausea with vomiting, unspecified; F17.210 Nicotine dependence, cigarettes, uncomplicated; Z79.899 Other long term (current) drug therapy; F41.8 Other specified anxiety disorders
CPT/HCPCS: 70450; 96361; 96374; 96375; 99283; J7030; A4216; J2405

== ENCOUNTER → 2024-02-28 | Outpatient (CLI) | payer MEDICAID, SELFPAY ==
[2024-02-28 16:47] LABS: Absolute Lymphocyte Count 2.02 X10^3/uL (0.83-4.51); Absolute Neutrophil Count 5.4 X10^3/uL (2.0-7.7); Basophil# 0.06 X10^3/uL; Basophil% 0.7 % (0-1); Eosinophil# 0.08 X10^3/uL; Hematocrit 42.8 % (40-54); Hemoglobin 14.8 g/dL (13.0-16.5); Lymphocyte # 2.02 X10^3/ul (0.83-4.51); Mean Corp Hgb Conc 34.6 g/dL (32-36); Mean Corpuscular Hgb 30.5 pg (27.0-32.0); Mean Corpuscular Volume 88.2 fL (80-94); Mean Platelet Vol. 10.8 fl (6.2-12.0); Monocyte# 0.47 X10^3/uL; Monocyte% 5.8 % (0-10); NRBC Flagged by Analyzer 0 % (0-5); Neutrophil # 5.43 X10^3/uL (2.7-7.7); Neutrophil % 67.3 % (47-70); Platelet Count 225 K/mm3 (150-450); RBC Distribution Width CV 11.9 % (11.6-14.6); Red Blood Count 4.85 M/mm3 (4.6-6.2); White Blood Count 8.1 K/mm3 (4.4-11.0)
[2024-02-28 17:25] LABS: ALB/GLOB Ratio 1.4 RATIO (0.9-2.4); AST(SGOT) 12 U/L (15-37); Alanine Aminotransfer ALT/SGPT 20 U/L (16-61); Albumin, Serum 4.2 g/dL (3.2-5.0); Alkaline Phosphatase 52 U/L (45-117); Anion Gap 7 (5-15); BUN 17 mg/dL (7-18); BUN/Creat Ratio 17.7 RATIO (10-20); Calcium,Total 9.3 mg/dL (8.5-10.1); Chloride 106 mmol/L (98-107); Creatinine, Serum 0.96 mg/dL (0.70-1.30); EST Glomerular Filtration Rate 100 mL/min (>60); Est Glom Filt Rate - Afr Amer 121 mL/min (>60); Globulin 3.1 g/dL (2.2-4.2); Glucose 85 mg/dL (74-106); Potassium 3.9 mmol/L (3.5-5.1); Protein, Total 7.3 g/dL (6.4-8.2); Sodium Level 139 mmol/L (136-145)
== END | disposition home or self-care (01) ==
LOC: BIMLAB 15:51
PROVIDERS: PCP Internal Medicine; Referring Provider Internal Medicine; Visit Provider Internal Medicine
DX: F41.9 Anxiety disorder, unspecified (principal); F32.A Depression, unspecified
CPT/HCPCS: 36415; 80053; 85025

== ENCOUNTER → 2024-11-21 | Outpatient (CLI) | payer MEDICAID, SELFPAY ==
[2024-11-21 15:01] LABS: Absolute Lymphocyte Count 1.94 X10^3/uL (0.83-4.51); Absolute Neutrophil Count 4.3 X10^3/uL (2.0-7.7); Basophil# 0.06 X10^3/uL; Basophil% 0.9 % (0-1); Eosinophil# 0.06 X10^3/uL; Eosinophils% 0.9 % (0-5); Hematocrit 41.5 % (40-54); Hemoglobin 14.2 g/dL (13.0-16.5); Lymphocyte # 1.94 X10^3/ul (0.83-4.51); Lymphocyte % 28.7 % (19-41); Mean Corp Hgb Conc 34.2 g/dL (32-36); Mean Corpuscular Hgb 30.7 pg (27.0-32.0); Mean Corpuscular Volume 89.8 fL (80-94); Mean Platelet Vol. 11.2 fl (6.2-12.0); Monocyte# 0.44 X10^3/uL; Monocyte% 6.5 % (0-10); NRBC Flagged by Analyzer 0 % (0-5); Neutrophil # 4.25 X10^3/uL (2.7-7.7); Neutrophil % 62.7 % (47-70); Platelet Count 210 K/mm3 (150-450); RBC Distribution Width CV 12.8 % (11.6-14.6); RBC Distribution Width SD 42.2 fl (35.1-43.9); Red Blood Count 4.62 M/mm3 (4.6-6.2); White Blood Count 6.8 K/mm3 (4.4-11.0)
[2024-11-21 15:41] LABS: Thyroid Stim Hormone (TSH) 0.554 uIU/mL (0.300-4.200); Vitamin D,25 Hydroxy 10.8 ng/mL (30-100)
[2024-11-21 15:49] LABS: ALB/GLOB Ratio 2.1 RATIO (0.9-2.4); AST(SGOT) 19 U/L (<=37); Alanine Aminotransfer ALT/SGPT 20 U/L (<=46); Albumin, Serum 4.5 g/dL (3.5-5.0); Alkaline Phosphatase 53 U/L (40-129); Anion Gap 12 (5-15); BUN 15 mg/dL (4-19); BUN/Creat Ratio 17.8 RATIO (10-20); Calcium,Total 9.1 mg/dL (7.6-11.0); Carbon Dioxide 25.2 mmol/L (21.0-32.0); Chloride 103 mmol/L (98-108); Creatinine, Serum 0.82 mg/dL (0.70-1.20); EST Glomerular Filtration Rate 124 (>60); Globulin 2.1 g/dL (2.2-4.2); Glucose 89 mg/dL (70-99); Potassium 4.1 mmol/L (3.3-5.1); Protein, Total 6.6 g/dL (5.9-8.4); Sodium Level 140 mmol/L (133-145); Total Bilirubin < 0.15 mg/dL (0.00-1.30)
== END | disposition home or self-care (01) ==
LOC: BIMLAB 12:02
PROVIDERS: PCP Internal Medicine; Referring Provider Internal Medicine; Visit Provider Internal Medicine
DX: F41.9 Anxiety disorder, unspecified (principal); F32.A Depression, unspecified
CPT/HCPCS: 36415; 80053; 82306; 84439; 84443; 85025

== ENCOUNTER → 2025-04-20 | Outpatient (CLI) | payer MEDICAID, SELFPAY ==
--- NOTE | 2025-04-20 07:35 | RAD_ITS ---
EXAM: XR Lumbosacral Spine, 2 or 3 Views CLINICAL INDICATION: LOW BACK PAIN TECHNIQUE: Frontal and lateral views of the lumbar spine and sacrum. COMPARISON: No relevant prior studies available. FINDINGS: VERTEBRAE: Unremarkable. Normal alignment. No acute fracture. SACRUM/COCCYX: Unremarkable as visualized. No acute fracture. DISC SPACES: No acute findings. No significant narrowing. SOFT TISSUES: Unremarkable. RAD/L/S Spine Min 4 Views IMPRESSION: 1. No acute fracture. 2. If symptoms persist, further evaluation with MRI is recommended. Reading Location: [id number]
== END | disposition home or self-care (01) ==
LOC: RAD 07:33
PROVIDERS: PCP Internal Medicine; Referring Provider Internal Medicine; Visit Provider Internal Medicine
DX: M54.50 Low back pain, unspecified (principal)
CPT/HCPCS: 72110